=== PATIENT | male | born 1990 | race Native Hawaiian/Other Pacific Islander ===

== ENCOUNTER 2018-06-09 18:40 | Emergency (ER) | payer OTHER ==
[~2018-06-09] VITALS: Ht 175.3 cm; Wt 127.0 kg
[2018-06-09 19:50] VITALS: BP 162/90; TEMP 98.1
== END 2018-06-09 19:51 | disposition home or self-care (01) ==
LOC: ED 18:40
DX: K08.89 Other specified disorders of teeth and supporting structures (principal); K04.7 Periapical abscess without sinus
CPT/HCPCS: 96372; 99283; J1885

== ENCOUNTER 2018-08-27 20:38 | Emergency (ER) | payer OTHER ==
[~2018-08-27] VITALS: Ht 175.3 cm; Wt 111.6 kg
[2018-08-27 21:48] VITALS: BP 138/75; TEMP 98.6
== END 2018-08-27 21:50 | disposition home or self-care (01) ==
LOC: ED 20:38
DX: Z48.02 Encounter for removal of sutures (principal); R22.31 Localized swelling, mass and lump, right upper limb; M79.641 Pain in right hand; Z98.890 Other specified postprocedural states
CPT/HCPCS: 99283; J0696